=== PATIENT | female | born 1935 | race Caucasian/White ===

== ENCOUNTER 2019-12-12 16:55 | Emergency (ER) | payer MEDICARE ==
[~2019-12-12] VITALS: Ht 157.5 cm; Wt 56.7 kg
[2019-12-12] MEDS ORDERED: ASCO500T9 PO (17:03)
[2019-12-12] MEDS ORDERED: ACET-2605 PO (17:03)
[2019-12-12] MEDS ORDERED: DOCU-141 PO (17:03)
[2019-12-12] MEDS ORDERED: OMEP20CA15 PO (17:03)
[2019-12-12] MEDS ORDERED: PRAV80TA21 PO (17:03)
[2019-12-12] MEDS ORDERED: ASPI-1169 PO (17:03)
[2019-12-12] MEDS ORDERED: ACET-868 PO (17:03)
[2019-12-12] MEDS ORDERED: NPH,100V SQ (17:03)
[2019-12-12] MEDS ORDERED: MULT-24 PO (17:03)
[2019-12-12] MEDS ORDERED: MECL-159 PO (17:03)
[2019-12-12] MEDS ORDERED: SENN-168 PO (17:03)
[2019-12-12] MEDS ORDERED: AMLO10TA7 PO (17:03)
[2019-12-12] MEDS ORDERED: GABA-534 PO (17:03)
[2019-12-12] MEDS ORDERED: FERR325T23 PO (17:04)
[2019-12-12] MEDS ORDERED: HYDR-4384 PO (17:04)
--- NOTE | 2019-12-12 17:10 | NUR ---
[facility] FROM [facility] C/O NAUSEA AND VOMITING STARTED THIS MORNING. PATIENT A/OX1-2, BREATHING EVEN AND UNLABORED, NO SOB NOTED, NEEDS ATTENDED, KEPT COMFORTABLE, ATTACHED TO THE [facility].
[2019-12-12] MEDS ORDERED: ONDANSETRON HCL/PF 4 MG/2 ML VIAL ONE (17:11)
[2019-12-12] MEDS ORDERED: ONDANSETRON HCL/PF 4 MG/2 ML VIAL IVP ONE (17:30)
[2019-12-12] MEDS ORDERED: IV NS 0.9% 500 ML BAG IV ONE (17:30)
[2019-12-12 17:38] LABS: BASOPHILS % (AUTO) 0.4 % (0.0-2.0); EOSINOPHILS % (AUTO) 0.2 % (0.0-6.0); HEMATOCRIT 32 % (33-45); HEMOGLOBIN 10.1 g/dL (11.5-14.8); LYMPHOCYTES # (AUTO) 0.9 /CMM (0.8-4.8); LYMPHOCYTES % (AUTO) 8.2 % (20.0-44.0); MEAN CORPUSCULAR HGB CONC 32 g/dl (31.0-36.0); MEAN CORPUSCULAR VOLUME 82 fL (82-100); MONOCYTES # (AUTO) 0.8 /CMM (0.1-1.30); MONOCYTES % (AUTO) 7.1 % (2.0-12.0); NEUTROPHILS # (AUTO) 9.6 /CMM (1.8-8.9); NEUTROPHILS % (AUTO) 84.1 % (43.0-81.0); PLATELET COUNT (AUTO) 260 /CMM (150-450); RED BLOOD CELL COUNT(AUTO) 3.84 MIL/uL (4.0-5.2); WHITE BLOOD COUNT (AUTO) 11.4 K/uL (4.3-11.0)
[2019-12-12 17:39] LABS: APPEARANCE,URINE Clear (CLEAR); BILIRUBIN,URINE Negative (NEGATIVE); BLOOD, URINE Negative Ery/uL (NEGATIVE); COLOR,URINE Orange (YELLOW); KETONES,URINE Negative (NEGATIVE); LEUKOCYTE ESTERASE ,URINE Negative (NEGATIVE); NITRITE, URINE Negative (NEGATIVE); PH,URINE 5.5 (5.0-8.0); PROTEIN,URINE 100 mg/dl (NEGATIVE); UGLUCOSE Negative (NEGATIVE)
[2019-12-12 17:46] LABS: CALCIUM, SERUM 8.8 mg/dL (8.5-10.1); CREATININE 1.1 mg/dL (0.6-1.3); POTASSIUM 4.2 mmol/L (3.5-5.1)
[2019-12-12 17:52] LABS: ALBUMIN 2.7 g/dL (3.4-5.0); BILIRUBIN,DIRECT 0.2 mg/dL (0.0-0.2); BILIRUBIN,TOTAL 0.7 mg/dL (0.2-1.0); TOTAL PROTEIN, SERUM 7.2 g/dL (6.4-8.2)
[2019-12-12 17:55] LABS: BACTERIA,URINE Few /HPF (None Seen); RBC,URINE NONE SEEN /HPF (0-2); SQUAMOUS EPITHELIAL CELL,UR Few /HPF (None Seen); WBC,URINE NONE SEEN /HPF (0-3)
--- NOTE | 2019-12-12 18:00 | NUR ---
PATEINT WITH NO S/SX NAUSEA AND VOMITING. NEEDS ATTENDED.
--- NOTE | 2019-12-12 18:59 | NUR ---
CALLED [facility] [phone] ETA IS [address] TRIP #[phone]
--- NOTE | 2019-12-12 19:31 | NUR ---
ENDORSED TO BHAVESH RAMIRES FOR RASHID.
--- NOTE | 2019-12-12 21:17 | NUR ---
REPORT GIVEN TO CAMRON DE DIOS [facility]
--- NOTE | 2019-12-12 21:21 | NUR ---
PT WAS PICKED UP VIA [facility]/ SKYE IN STABLE CONDITION.
[2019-12-12 22:23] VITALS: BP 112/51
== END 2019-12-12 21:21 | disposition home or self-care (01) ==
LOC: ER 17:06
DX: R11.10 Vomiting, unspecified (principal); E86.0 Dehydration; E11.9 Type 2 diabetes mellitus without complications; K21.9 Gastro-esophageal reflux disease without esophagitis; F32.9 Major depressive disorder, single episode, unspecified; Z79.899 Other long term (current) drug therapy; Z79.82 Long term (current) use of aspirin
CPT/HCPCS: 36415; 71045; 80048; 80076; 81001; 83690; 85025; 96374; 99284; J2405; J7040; 81000-TC